=== PATIENT | female | born 1940 | race Caucasian/White ===

== ENCOUNTER → 2016-05-15 | Outpatient (CLI) | payer OTHER ==
--- NOTE | 2016-05-15 15:28 | DX ---
Chest, Two Views - May 15, 2016 at 1449 hours History: Exposure to TB. Z20.1. Comparison: February 20162013. Findings: Cardiac silhouette is within normal range. Moderate anterior wedge compression fracture of the T12 vertebral body again noted, unchanged since 2014. No evidence of active granulomatous disease . No pneumonia, congestive heart failure, pleural effusion, or pneumothorax. Impression: 1. No active granulomatous disease noted. 2. No acute pulmonary disease. 3. T12 moderate compression fractures similar to 2014. Consider DEXA bone scan evaluation for osteopo rosis if clinically indicated.
== END ==
LOC: BMCIMAGING 14:53
PROVIDERS: ATTEND Internal Medicine
DX: Z20.1 Contact with and (suspected) exposure to tuberculosis (principal)

== ENCOUNTER → 2016-10-02 | Outpatient (CLI) | payer OTHER | LOC: BMCIMAGING 14:40 | PROVIDERS: ATTEND Internal Medicine | DX: Z12.31 Encounter for screening mammogram for malignant neoplasm of breast (principal) | CPT/HCPCS: G0202 ==

== ENCOUNTER → 2017-10-02 | Outpatient (CLI) | payer OTHER | LOC: BMCIMAGING 14:18 | PROVIDERS: ATTEND Internal Medicine | DX: Z12.31 Encounter for screening mammogram for malignant neoplasm of breast (principal) ==